=== PATIENT | female | born 1965 ===

== ENCOUNTER 2017-05-08 19:31 | Emergency (ER) | payer OTHER ==
[2017-05-08 19:40] VITALS: BP 154/84; PULSE 68; RESP 18; TEMP 98.7; O2SAT 98
--- NOTE | 2017-05-08 20:38 | ED PDOC ---
HPI: Wound Care - HPI Time Seen by Provider: 05/08/17 20:18 Chief Complaint (Nursing): Abnormal Skin Integrity Chief Complaint (Provider): head laceration History Per: Patient, Family History Of Present Illness: 52 y/o female presents for evaluation of head laceration sustained prior to arrival. Patient states she was walking and tripped on uneven sidewalk and hit her forehead on a fence. Patient complaining of pain to right knee. Denies LOC , headache, dizziness, nausea/vomiting, vision changes, extremity numbness/ weakness. Tetanus vaccine not up to date. Past Medical History Reviewed: Historical Data, Nursing Documentation, Vital Signs Vital Signs: Last Vital Signs Temp 98.7 F 05/08/17 19:36 Pulse 68 05/08/17 19:36 Resp 18 05/08/17 19:36 BP 154/84 H 05/08/17 19:36 Pulse Ox 98 05/08/17 19:36 - Medical History PMH: Diabetes - Surgical History Surgical History: Hernia Repair - Family History Family History: States: No Known Family Hx - Allergies Allergies/Adverse Reactions: Allergies Allergy/AdvReac Type Severity Reaction Status Date / Time No Known Allergies Allergy Verified 05/08/17 19:36 Review of Systems ROS Statement: Except As Marked, All Systems Reviewed And Found Negative Musculoskeletal: Positive for: Leg Pain (right knee pain) Skin: Positive for: Other (head laceration) Physical Exam - Reviewed Nursing Documentation Reviewed: Yes Vital Signs Reviewed: Yes - Physical Exam Appears: Positive for: Well, Non-toxic, No Acute Distress Head Exam: Positive for: NORMAL INSPECTION, NORMOCEPHALIC. Negative for: ATRAUMATIC (3cm horizontal laceration right frontal scalp; wound edges closed. No active bleeding, surrounding bony deformity noted) Eye Exam: Positive for: Normal appearance, EOMI, PERRL ENT: Positive for: Normal ENT Inspection Cardiovascular/Chest: Positive for: Regular Rate, Rhythm Respiratory: Positive for: Normal Breath Sounds Gastrointestinal/Abdominal: Positive for: Normal Exam Back: Positive for: Normal Inspection Extremity: Positive for: Normal ROM, Tenderness (right patella with + abrasion. Tender to palpate medial right knee without swelling, deformity, ecchymosis), Capillary Refill (<2 sec b/l LE). Negative for: Calf Tenderness Neurologic/Psych: Positive for: Alert, Oriented - ECG O2 Sat by Pulse Oximetry: 98 - Other Rad right knee xray X-Ray: Viewed By Me X-Ray Interpretation: no acute findings - Progress ED Course And Treament: CT head, xray right knee EXAM: CT Head Without Intravenous Contrast CLINICAL HISTORY: 52 years old, female; Injury or trauma; Fall; Initial encounter; Laceration; Without residual foreign body; Forehead; Additional info: Head injury TECHNIQUE: Axial computed tomography images of the head/brain without intravenous contrast. All CT scans at this facility use one or more dose reduction techniques, viz.: automated exposure control; ma/kV adjustment per patient size (including targeted exams where dose is matched to indication; i.e. head); or iterative reconstruction technique. Coronal and sagittal reformatted images were created and reviewed. COMPARISON: No relevant prior studies available. FINDINGS: Brain: Unremarkable. No hemorrhage. No significant white matter disease. No edema. Ventricles: Unremarkable. No ventriculomegaly. Bones/joints: Unremarkable. No acute fracture. Soft tissues: Small right frontal scalp laceration/hematoma Sinuses: Unremarkable as visualized. No acute sinusitis. Mastoid air cells: Unremarkable as visualized. No mastoid effusion. IMPRESSION: Trauma limited to small right frontal scalp hematoma/laceration without intra- cranial trauma or fracture. Patient educated on findings, discharged. Advised ibuporfen/tylenol PRN pain Advised follow up PMD 2-3 days. Ice affected areas. Return precautions given. Procedure: Wound Repair - Time Performed Time Performed: 21:10 - Time Out Time Out: Side verified, Site verified, Patient ID confirmed, Sterile procedures obs. - Consent Obtained Consent obtained: Verbal - Performed by Performed by: Mid-level Provider - Indications Indication(s):: Laceration - Location Location:: Face Dimensions Length cm: 3cm Dimensions width cm: 0.3cm Depth:: Epidermis - Debris Debris:: None - Irrigated Irrigated with ml of normal saline: 150mL - Wound repair method Edison:: Tissue glue, Steri-strips - Muscle repiar layer closed with Muscle repair layer closed with:: Tetanus ordered - Patient tolerated procedure Patient Tolerated Procedure:: Well Disposition - Clinical Impression Clinical Impression: Forehead laceration, Knee injury, Head injury - Patient ED Disposition Is Patient to be Admitted: No Counseled Patient/Family Regarding: Studies Performed, Diagnosis, Need For Followup, Rx Given - Disposition Referrals: [facility] [Outside] Disposition: Routine/Home Disposition Time: 23:33 Condition: IMPROVED Instructions: Head Injury (ED), Laceration (ED), Skin Adhesive Care (ED), Knee Pain (ED) Print Language: MALAY
[2017-05-08] MEDS ORDERED: Acetaminophen 325 MG/10.15 ML ONE (21:14)
[2017-05-09] MEDS ORDERED: Midazolam 2 MG/2 ML VIAL ONE (03:06)
--- NOTE | 2017-05-09 09:22 | RAD ---
PROCEDURE: Right Knee Radiographs. HISTORY: fall, pain COMPARISON: None. FINDINGS: BONES: No acute fracture or destructive bony lesion identified. JOINTS: Limited osteophyte development is seen at the lateral femorotibial compartment as well as the patellofemoral articulation compatible degenerative joint disease. Limited cortical sclerosis appreciate all 3 joint compartments compatible with the same. No subluxation or dislocation JOINT EFFUSION: None. OTHER FINDINGS: None. IMPRESSION: Limited degenerative joint changes in all 3 compartments as discussed above. No acute fracture or dislocation identified.
--- NOTE | 2017-05-09 09:25 | CT ---
PROCEDURE: CT HEAD WITHOUT CONTRAST. HISTORY: Head injury COMPARISON: None available. TECHNIQUE: Axial computed tomography images were obtained through the head/brain without intravenous contrast. Radiation dose: Total exam DLP = 844.65 mGy-cm. This CT exam was performed using one or more of the following dose reduction techniques: Automated exposure control, adjustment of the mA and/or kV according to patient size, and/or use of iterative reconstruction technique. FINDINGS: HEMORRHAGE: No intracranial hemorrhage. BRAIN: No mass effect or edema. No atrophy or chronic microvascular ischemic changes. VENTRICLES: Unremarkable. No hydrocephalus. CALVARIUM: Unremarkable. PARANASAL SINUSES: Unremarkable as visualized. No significant inflammatory changes. MASTOID AIR CELLS: Unremarkable as visualized. No inflammatory changes. OTHER FINDINGS: None. IMPRESSION: No acute intracranial abnormalities. No significant findings to account for the clinical presentation. Concordant results (preliminary interpretation) provided by [facility]. Procedure Completed: 22:32 Preliminary ([facility]) Report: Dictated and Authenticated: 23:17 Final Interpretation: 09:24 2017.
== END 2017-05-08 23:39 | disposition home or self-care (01) ==
LOC: H.ER 19:31
DX: S01.81XA Laceration without foreign body of other part of head, initial encounter (principal); S09.90XA Unspecified injury of head, initial encounter; S89.91XA Unspecified injury of right lower leg, initial encounter; W19.XXXA Unspecified fall, initial encounter; Y92.480 Sidewalk as the place of occurrence of the external cause; E11.9 Type 2 diabetes mellitus without complications